=== PATIENT | female | born 1980 | race Two or more races ===

== ENCOUNTER → 2019-05-11 | Outpatient (CLI) | payer OTHER | END | disposition home or self-care (01) | LOC: PRENATAL 11:00 | DX: O28.3 Abnormal ultrasonic finding on antenatal screening of mother (principal); O09.512 Supervision of elderly primigravida, second trimester; O35.3XX1 Maternal care for (suspected) damage to fetus from viral disease in mother, fetus 1; Z3A.19 19 weeks gestation of pregnancy ==

== ENCOUNTER 2019-09-20 07:45 | Inpatient (IN) | payer OTHER ==
[~2019-09-20] VITALS: Ht 175.3 cm; Wt 3.2 kg
[2019-09-20] MEDS ORDERED: PRENAT PO (09:59)
[2019-09-27] MEDS ORDERED: PRENATAL + DHA1 EAC1 PO (08:26)
== END 2019-09-29 14:39 | disposition home or self-care (01) | DRG 788 ==
LOC: LDR 09-26 07:00 → OB/GYN 09-26 07:45 → O/R 09-26 08:30 → OB/GYN 09-26 08:30
PROVIDERS: ADMIT Obstetrics & Gynecology; ATTEND Obstetrics & Gynecology
PROC: 0UB90ZZ Excision of Uterus, Open Approach (ICD-10-PCS; 2019-09-26)
PROC: 4A1HXFZ Monitoring of Products of Conception, Cardiac Rhythm, External Approach (ICD-10-PCS; 2019-09-26)
PROC: 3E033VJ Introduction of Other Hormone into Peripheral Vein, Percutaneous Approach (ICD-10-PCS; 2019-09-26)
PROC: 10D00Z1 Extraction of Products of Conception, Low, Open Approach (ICD-10-PCS; principal; 2019-09-26 07:00)
DX: O64.1XX0 Obstructed labor due to breech presentation, not applicable or unspecified (principal); Z3A.39 39 weeks gestation of pregnancy; O34.13 Maternal care for benign tumor of corpus uteri, third trimester; D25.2 Subserosal leiomyoma of uterus; Z37.0 Single live birth; O99.824 Streptococcus B carrier state complicating childbirth